=== PATIENT | female | born 1935 | race Caucasian/White ===

== ENCOUNTER → 2022-08-09 | Day surgery (SDC) | payer OTHER ==
[~2022-08-09] MED LIST: ATROPINE SULF 1 MG/10 ML SYR IV ONE; FLUMAZENIL 0.1 MG/ML (5 mL VIAL) IV ONE; HYDRALAZINE HCL 20 MG/ML VIAL ONE; LIDOCAINE VISCOUS 2% SOLN 15 ML UDC ONE; MIDAZOLAM HCL 10 ML ONE; NA CHLORIDE 0.9% 500 ML ONE; PHENOL 1.4% ORAL SPRAY 180ML ONE
--- NOTE | 2022-08-09 13:25 | OP ---
Date of Procedure: 08/09/2022 Surgeon: SRINIVASAN RICHARDSON Procedure Performed: Transesophageal echocardiogram. Indication: Atrial fibrillation, post Watchman. Description Of Procedure: After risks, benefits, alternatives were explained, the patient agreed to procedure and signed informed consent. The patient was brought into the OR 5. After appropriate harshad e-out, the back of throat was numbed using local lidocaine and then I gave 3 mg of Versed and advance d the ERICA probe without difficulty. ERICA was performed and Watchman was seated very well. No leak or thrombus. ERICA probe was removed. The patient tolerated the procedure very well and sent to recover y in stable condition. Conclusion: Successful transesophageal echocardiogram. /KELLY Voice ID: [id number] Report ID: [id number]
--- NOTE | 2022-08-10 07:36 | TEE ---
TRANSESOPHAGEAL ECHOCARDIOGRAM REPORT CARDIOLOGY DEPARTMENT DATE OF STUDY: 08/09/22 HEIGHT: 5'3" WEIGHT: 155 DIAGNOSIS: POST WATCHMAN YARN EXAMINER SKEINS COMMENTS: CARDIAC HISTORY: CATHERIZATION: SURGERY: PROSTHETIC VALVE: PACEMAKER: 2 DIMENSIONAL ASSESSMENT: RIGHT ATRIUM: LEFT ATRIUM: RIGHT VENTRICLE: LEFT VENTRICLE: TRICUSPID VALVE: MITRAL VALVE: PULMONIC VALVE: AORTIC VALVE: PERICARDIAL EFFUSION: AORTIC ROOT: EJECTION FRACTION: 55-60 % LEFT VENTRICULAR WALL MOTION: DOPPLER/COLOR FLOW: COMMENTS: WATCHMAN IS SEATED WELL, NO LEAK, NO THROMBUS NORMAL LEFT VENTRICULAR EJECTION FRACTION 55-60% MILD MITRAL REGURGITATION TECHNOLOGIST: DR. RICHARDSON/ VIELKA CEE
== END | disposition home or self-care (01) ==
LOC: EKG 08:00
PROVIDERS: ATTEND Internal Medicine
DX: I48.0 Paroxysmal atrial fibrillation (principal); I10 Essential (primary) hypertension; E78.2 Mixed hyperlipidemia; I65.23 Occlusion and stenosis of bilateral carotid arteries; Z98.890 Other specified postprocedural states; Z88.3 Allergy status to other anti-infective agents; Z88.8 Allergy status to other drugs, medicaments and biological substances; Z91.041 Radiographic dye allergy status
CPT/HCPCS: 93312; J2250; J7040; J0360; J0461